=== PATIENT | male | born 1995 | race Caucasian/White ===

== ENCOUNTER 2017-09-18 16:33 | Emergency (ER) | END 2017-09-18 19:19 | disposition home or self-care (01) ==

== ENCOUNTER 2017-09-20 09:58 | Emergency (ER) | END 2017-09-20 12:06 | disposition home or self-care (01) ==

== ENCOUNTER 2017-09-20 22:50 | Emergency (ER) | END 2017-09-20 23:13 | disposition left against medical advice (07) ==